=== PATIENT | female | born 1980 | race Caucasian/White ===

== ENCOUNTER 2017-11-11 12:26 | Outpatient (CLI) | payer BC ==
--- NOTE | 2017-11-11 13:05 | ULT ---
ULTRASOUND SOFT TISSUE: Date: 11/11/17 HISTORY: Right upper medial arm pain. FINDINGS/IMPRESSION: Sonographic evaluation of the right upper medial arm demonstrates no evidence of mass, fluid collecti on, or hematoma. POS: [facility]
== END 2017-11-11 12:27 | disposition home or self-care (01) ==
LOC: ULT 12:26
PROVIDERS: ATTEND Family Medicine
DX: M79.89 Other specified soft tissue disorders (principal); Z00.00 Encounter for general adult medical examination without abnormal findings
CPT/HCPCS: 76999; 80053; 80061; 85025

== ENCOUNTER 2018-02-10 15:22 | Outpatient (CLI) | payer BC ==
--- NOTE | 2018-02-10 16:24 | RAD ---
CERVICAL SPINE COMPLETE WITH FLEXION AND EXTENSION 02/10/18 HISTORY: Chronic neck pain. COMPARISON: None. FINDINGS: There is abnormal narrowing of the C5-6 and C6-7 disc space with end plate sclerosis and uncinate pro cess hypertrophy. There is 2 mm C6 over C7 retrolisthesis. This retrolisthesis improves with flexion and is unchanged with extension. IMPRESSION: Moderate spondylosis lower cervical spine with subtle translation with flexion. POS: [facility]
== END 2018-02-10 15:23 | disposition home or self-care (01) ==
LOC: SCSRAD 15:22
PROVIDERS: ATTEND Family Medicine
DX: M54.2 Cervicalgia (principal); M47.812 Spondylosis without myelopathy or radiculopathy, cervical region
CPT/HCPCS: 72052

== ENCOUNTER 2018-02-27 10:30 | Outpatient (CLI) | payer BC ==
--- NOTE | 2018-02-27 13:30 | ULT ---
ULTRASOUND ABDOMEN: Date: 02/27/18 HISTORY: Right lower quadrant pain. FINDINGS: The liver, spleen, gallbladder, pancreas, kidneys, and visualized portions of the aorta and IVC are n ormal. The common duct measures 2.0 mm in diameter. No free fluid is seen. IMPRESSION: Normal exam. POS: [facility]
--- NOTE | 2018-02-27 13:31 | ULT ---
PELVIC ULTRASOUND WITH DOPPLER: (Transabdominal, transvaginal, Pitts scale, color flow, and spectral Doppler) Date: 02/27/18 HISTORY: Right lower quadrant pain. FINDINGS: The uterus measures 5.5 x 3.8 x 3.3 cm, without focal mass or endometrial fluid. The endometrium moiz ures 2.0 mm in thickness. The right ovary measures 2.9 x 2.6 x 2.1 cm. The left ovary measures 2.4 x 2.3 x 1.8 cm. Flow is demo nstrated to both ovaries. No free fluid or adnexal mass is seen. IMPRESSION: Unremarkable exam. POS: [facility]
== END 2018-02-27 10:31 | disposition home or self-care (01) ==
LOC: BICULT 10:30
PROVIDERS: ATTEND Family Medicine
DX: R10.813 Right lower quadrant abdominal tenderness (principal)
CPT/HCPCS: 76700; 76856

== ENCOUNTER 2018-03-03 12:59 | Outpatient (CLI) | payer BC ==
[~2018-03-03 12:59] MED LIST: Iopamidol 370 76% 100 ML VIAL ONE
[2018-03-03 14:11] LABS: BHCG - Serum Negative (NEGATIVE); Pregs Control Background? CLEAR/WHITE (CLR/WHITE); Pregs Control Bar Appear? YES (CONTROL BAR)
--- NOTE | 2018-03-03 15:27 | MRI ---
MRI CERVICAL SPINE: Multiplanar, multisequential imaging of cervical spine obtained. INDICATION: Neck pain. Right arm pain. FINDINGS: Cervical vertebrae maintain height and alignment. There is edema within the C5 and C6 vertebrae. Th ere is mild superior end plate depression of the C6 vertebra resulting mild loss of central height. Degenerative disk signal changes are also present at C5-6. No disk bulge or protrusion at C2-3 or C3-4. At C4-5, minimal disk bulge. No central canal or foraminal stenosis. At C5-6, mild disk bulge mildly effaces the anterior subarachnoid space. There is bilateral uncinate hypertrophy at this level producing mild bilateral foraminal narrowing. At C6-7, a mild diffuse disk bulge abuts the anterior cord. Asymmetric disk-osteophyte complex proje cts to the right and encroaches into the right foramina. Left foramina appears patent. At C7-T1, no significant abnormality. Cord signal is normal. IMPRESSION: There is edema within the C5 an C6 vertebrae with mild superior end plate depression at C6. There ar e degenerative disk end plate changes at C5-6 and mild disk bulge at C5-6. A more prominent bulge at C6-7 with asymmetric disk to the right at this level as described above. POS: [facility]
--- NOTE | 2018-03-03 15:51 | CT ---
CT ABDOMEN WITH CONTRAST CT PELVIS WITH CONTRAST: DATE: 03/03/18 HISTORY: 37-year-old female with right lower quadrant abdominal pain for 2 months, R10.813. COMPARISON: None. TECHNIQUE: IV injection of iodinated contrast media: [id number]. Oral contrast media: Administered. FINDINGS: Levoscoliosis of the lumbar spine. No high grade lumbar central spinal canal stenosis. Lung bases are clear. No pleural effusion. No pneumoperitoneum. Inferior position of urinary bladder. Uterus intact at midline, normal size. Only the most proximal 0.5 cm of the appendix is visualized. It contains ga s in its lumen and is of normal thickness. The rest of the appendix is not identified with certainty, due to lack of visceral fat. Posterior to that, there is a several centimeter region of intermediate attenuation in the lateral aspect of the right pelvic cavity, posterior to the right proximal building construction inspector al iliac vein. It is uncertain whether this represents pathology involving the right ovary, fallopian tube, or neither. There was no ovarian abnormality or ovarian cyst identified on the pelvic ultrasou nd of 02/27/18, and therefore the exact etiology is uncertain (axial image 63 of 85, series 2; galan l image 58 of 110, series 602). No colonic diverticulitis. No small bowel dilation. Normal abdominal aorta, kidneys, adrenals, pancreas, liver, and spleen. No pneumoperitoneum or ascites. IMPRESSION: 1)In the right pelvic cavity, there is an area of intermediate density, of uncertain etiology and sig nificance. It is uncertain whether this is the cause of the patient's symptoms. 2)Pelvic relaxation. 3)Levoscoliosis of the lumbar spine. [facility] POS: [facility]
== END 2018-03-03 13:00 | disposition home or self-care (01) ==
LOC: SCSMRI 12:59
PROVIDERS: ATTEND Family Medicine
DX: M50.122 Cervical disc disorder at C5-C6 level with radiculopathy (principal); N91.2 Amenorrhea, unspecified; R10.813 Right lower quadrant abdominal tenderness; M41.9 Scoliosis, unspecified; N81.89 Other female genital prolapse
CPT/HCPCS: 36415; 72141; 74177; 84703

== ENCOUNTER 2018-03-03 21:09 | Emergency (ER) | payer BC ==
[2018-03-03 22:18] LABS: Bilirubin Negative (Negative); Blood, Urine Negative (Negative); Clarity Clear (Clear); Glucose, Urine (Dipstick) Negative (Negative); Leukocyte Negative (Negative); Nitrite Negative (Negative); Protein, Urine (Dipstick) Negative (Neg-Trace); Urobilinogen 0.2 mg/dL (0.2-1.0)
[2018-03-03 22:25] LABS: Specific Gravity, Urine 1.003 (1.002-1.036)
[2018-03-03 22:26] LABS: Hemoglobin 13.5 g/dL (12.0-16.0); Mean Corpuscular Hemoglobin 30.3 pg (27.0-31.0); Mean Corpuscular Volume 89.1 fL (78.0-98.0); Mean Platelet Volume 9.3 fL (7.4-10.4); Platelet Count 169 thou/uL (130-400); Red Blood Cell (RBC) Count 4.45 mill/uL (4.20-5.40)
[2018-03-03 22:27] LABS: BHCG - Serum Negative (NEGATIVE); Pregs Control Background? CLEAR/WHITE (CLR/WHITE); Pregs Control Bar Appear? YES (CONTROL BAR)
[2018-03-03 22:36] LABS: Eosinophils 4 % (0-10); Lymphocytes 26 % (21-51); MDiff Complete? YES; Monocytes 11 % (0-10); Neutrophil 58 % (42-75)
[2018-03-03 22:37] LABS: ALT (SGPT) 13 U/L (8-55); AST (SGOT) 21 U/L (5-34); Albumin 4.5 g/dL (3.5-5.0); Alkaline Phosphatase 45 U/L (40-150); Anion Gap 14 mmol/L (10-20); BUN (Urea Nitrogen) 8 mg/dL (7.0-18.7); Bilirubin, Total 0.4 mg/dL (0.2-1.2); Calc. Creatinine Clearance 0 mL/min (70-130); Calcium 9.7 mg/dL (7.8-10.44); Carbon Dioxide 25 mmol/L (22-29); Chloride 105 mmol/L (98-107); Estimated GFR-MDRD 79; Glucose 99 mg/dL (70-105); Lipase 31 U/L (8-78); Potassium 3.8 mmol/L (3.5-5.1); Protein, Total 7.5 g/dL (6.0-8.3); Sodium 140 mmol/L (136-145)
--- NOTE | 2018-03-03 23:25 | ULT ---
PELVIC ULTRASOUND 03/03/18 COMPARISON: CT abdomen/pelvis 01/31/18, pelvic ultrasound 01/27/18. HISTORY: Right lower quadrant/pelvic pain. TECHNIQUE: Multiplanar morse scale and color doppler images were obtained in a transabdominal pelvic ultrasound. FINDINGS: The uterus is normal in size and appearance without focal abnormality. The endometrial stripe is norm al in thickness measuring 2-3 mm. No free fluid is seen in the pelvis. Both ovaries are normal in size and appearance and demonstrates normal internal flow. No adnexal mass is identified. IMPRESSION: Unremarkable pelvic ultrasound. POS: [facility]
== END 2018-03-04 00:02 | disposition home or self-care (01) ==
LOC: SCSER 21:09
DX: R10.31 Right lower quadrant pain (principal); J45.909 Unspecified asthma, uncomplicated; Z79.899 Other long term (current) drug therapy
CPT/HCPCS: 36415; 72141; 74177; 76856; 80053; 81003; 83690; 84703; 85025

== ENCOUNTER 2018-03-17 13:51 | Outpatient (CLI) | payer BC ==
--- NOTE | 2018-03-17 16:02 | CT ---
ABDOMEN CT WITH CONTRAST PELVIC CT WITH CONTRAST 03/17/18 HISTORY: Right lower quadrant pain x5 weeks. COMPARISON: None. FINDINGS: The computer sciences professor tomogram demonstrates persistent levoscoliosis of the lumbar spine, incompletely evaluated. ABDOMEN CT: Lung bases are clear. Appropriate enhancement of the solid organs. Patent portal vein. Unremarkable g allbladder. Symmetric enhancement of the kidneys. No obstructive uropathy. Gastric mucosa, duodenum and multiple normal caliber small bowel loops are identified. Fecalization of the distal ileum likely due to incompetent ileocecal valve. Scattered material and contrast in a nondistended, nondilated colon. Imaging from the region of the cecal apex is a normal caliber ap pendix. The appendix appears to be filled with air and a partial amount of contrast. No obvious infla mmatory change. Evaluation for inflammatory change is limited due to decreased intra-abdominal fat. N o definite mass, lymphadenopathy, free air or free fluid. Previously noted hypodensity in the right hemipelvis/right adnexa is not appreciated on the current e xam. CT PELVIS: Unremarkable urinary bladder. Uterus and adnexal structures are unremarkable. Stable scoliotic curvature of the lumbar spine. IMPRESSION: 1. Normal caliber appendix. 2. Indeterminate density noted in the right hemipelvis on the previous examination is not curren tly appreciated. POS: [facility]
== END 2018-03-17 13:52 | disposition home or self-care (01) ==
LOC: CT 13:51
PROVIDERS: ATTEND Surgery
DX: R10.813 Right lower quadrant abdominal tenderness (principal)
CPT/HCPCS: 74177

== ENCOUNTER 2018-04-21 11:51 | Outpatient (CLI) | payer BC ==
--- NOTE | 2018-04-21 14:59 | ULT ---
LIMITED LEFT BREAST ULTRASOUND: Date: 04/21/18 PROVIDED CLINICAL HISTORY: Abnormal mammogram. FINDINGS: Limited sonographic interrogation was performed of the left breast in the region of mammographic conc [place]. No cystic or solid masses are seen in the area of concern. IMPRESSION: BI-RADS Category 1 - Negative. Return to annual screening mammography recommended. POS: [facility]
== END 2018-04-21 11:52 | disposition home or self-care (01) ==
LOC: BICMAMMO 11:51
PROVIDERS: ATTEND Student in an Organized Health Care Education/Training Program
DX: Z12.31 Encounter for screening mammogram for malignant neoplasm of breast (principal); N64.89 Other specified disorders of breast; Z80.3 Family history of malignant neoplasm of breast
CPT/HCPCS: 77063; 77067; G0279

== ENCOUNTER 2018-04-21 15:04 | Outpatient (CLI) | payer BC ==
[~2018-04-21 15:04] MED LIST changes: +Gadobenate Dimeglumine 529 MG/1 ML (20ML VIAL) ONE; -Iopamidol 370 76% 100 ML VIAL ONE
--- NOTE | 2018-04-21 18:52 | MRI ---
MRI PELVIS WITH AND WITHOUT IV CONTRAST: 04/21/18 PROVIDED CLINICAL HISTORY: Right lower quadrant pain. FINDINGS: Correlation is mad with CT examinations dated 03/17/18 and 03/03/18. The uterus demonstrates a normal MR appearance. There is a normal appearance to the uterine myometriu m and endometrium. The right and left ovaries demonstrate an unremarkable MR appearance. Simple appearing 2.1 cm dominan t physiologic cyst left ovary. There is no evidence for inflammatory fat stranding or free fluid. The pelvic vasculature demonstrate s a normal MR appearance. Regional marrow and muscular signal appear normal. The urinary bladder demo nstrates no evidence for filling defect. IMPRESSION: Unremarkable MRI of the pelvis. POS: [facility]
--- NOTE | 2018-04-21 19:12 | MRI ---
MRI ABDOMEN WITH AND WITHOUT IV CONTRAST 04/21/18 PROVIDED CLINICAL HISTORY: Abdominal pain. FINDINGS: There is a subcentimeter circumscribed T2 hyperintense focus involving the anterior segment of the ri ght hepatic lobe demonstrating transient contrast enhancement on the initial postcontrast images, com patible with a small flash filling hemangioma. The liver, spleen, pancreas, kidneys and adrenal gland s demonstrate an otherwise unremarkable MR appearance. There is no evidence for intrahepatic or extra hepatic biliary ductal dilatation. No evidence for cholelithiasis. There is no inflammatory fat stran ding evident. Regional marrow and muscular signal appear normal. IMPRESSION: Unremarkable MRI of the abdomen. POS: [facility]
== END 2018-04-21 15:05 | disposition home or self-care (01) ==
LOC: MRI 15:04
PROVIDERS: ATTEND Surgery
DX: L02.91 Cutaneous abscess, unspecified (principal); R22.9 Localized swelling, mass and lump, unspecified
CPT/HCPCS: 36415; 72197; 74183; 80053; 85025; 86140; A9579

== ENCOUNTER 2019-05-15 12:55 | Outpatient (CLI) | payer BC ==
--- NOTE | 2019-05-15 14:44 | MMO ---
Bilateral MAMMO Bilat Screen [facility]. CLINICAL HISTORY: Patient is 39 years old and is seen for screening. The patient has the following family history of breast cancer: paternal grandmother, at age 28 and paternal aunt, at age 50. The patient has no personal history of cancer. VIEWS: The views performed were: bilateral craniocaudal with tomosynthesis and bilateral mediolateral oblique with tomosynthesis. FILMS COMPARED: The present examination has been compared to prior imaging studies performed at [facility] on 02/18/2017 and 04/21/2018. This study has been interpreted with the assistance of computer-aided detection. MAMMOGRAM FINDINGS: The breasts are heterogeneously dense, which could obscure a lesion on mammography. There are no suspicious masses, suspicious calcifications, or new areas of architectural distortion. IMPRESSION: THERE IS NO MAMMOGRAPHIC EVIDENCE OF MALIGNANCY. A ROUTINE FOLLOW-UP MAMMOGRAM IN 1 YEAR IS RECOMMENDED. THE RESULTS OF THIS EXAM WERE SENT TO THE PATIENT. ACR BI-RADS Category 1 - Negative MAMMOGRAPHY NOTE: 1. A negative mammogram report should not delay a biopsy if a dominant of clinically suspicious mass is present. 2. Approximately 10% to 15% of breast cancers are not detected by mammography. 3. Adenosis and dense breasts may obscure an underlying neoplasm. Reported by: KIERA ROSADO MD Electonically Signed: [id number]
== END 2019-05-15 12:56 | disposition home or self-care (01) ==
LOC: BICMAMMO 12:55
PROVIDERS: ATTEND Student in an Organized Health Care Education/Training Program
DX: Z12.31 Encounter for screening mammogram for malignant neoplasm of breast (principal); Z80.3 Family history of malignant neoplasm of breast
CPT/HCPCS: 77063; 77067

== ENCOUNTER 2019-10-16 06:36 | Outpatient (CLI) | payer BC ==
--- NOTE | 2019-10-16 07:54 | ULT ---
Exam: Transabdominal pelvic ultrasound HISTORY: Right lower quadrant pain COMPARISON: None TECHNIQUE: Transabdominal imaging of the pelvis is performed Ovaries are interrogated with grayscale, color flow, Doppler imaging and spectral waveform analysis FINDINGS: Uterus is identified, without myometrial masses. Uterus measures 8.0 x 3.3 x 5.4 cm Endometrium: Homogeneous echotexture, measuring 0.8 cm Left ovary: Normal echotexture, measuring 3.7 x 3.6 x 1.9 cm Right ovary: Normal echotexture, measuring 2.7 x 4.0 x 3.7 cm. 2.7 x 1.7 x 1.9 cm right ovarian cyst Free fluid: None Ovarian Doppler: Vascular flow to both ovaries IMPRESSION: 1. Right ovarian cyst. Follow-up ultrasound in 8 weeks.
== END 2019-10-16 06:37 | disposition home or self-care (01) ==
LOC: BICULT 06:36
PROVIDERS: ATTEND Family Medicine
DX: R10.813 Right lower quadrant abdominal tenderness (principal); N83.201 Unspecified ovarian cyst, right side; Z90.49 Acquired absence of other specified parts of digestive tract
CPT/HCPCS: 76856; 93976

== ENCOUNTER 2020-05-16 14:36 | Outpatient (CLI) | payer BC | END 2020-05-16 14:37 | disposition home or self-care (01) | LOC: BICMAMMO 14:36 | PROVIDERS: ATTEND Student in an Organized Health Care Education/Training Program | DX: Z12.31 Encounter for screening mammogram for malignant neoplasm of breast (principal); Z80.3 Family history of malignant neoplasm of breast | CPT/HCPCS: 77063; 77067 ==

== ENCOUNTER 2021-05-29 13:50 | Outpatient (CLI) | payer BC | END 2021-05-29 13:51 | disposition home or self-care (01) | LOC: BICMAMMO 13:50 | PROVIDERS: ATTEND Student in an Organized Health Care Education/Training Program | DX: Z12.31 Encounter for screening mammogram for malignant neoplasm of breast (principal); Z80.3 Family history of malignant neoplasm of breast | CPT/HCPCS: 77063; 77067 ==

== ENCOUNTER 2022-06-04 07:54 | Outpatient (CLI) | payer BC | END 2022-06-04 07:55 | disposition home or self-care (01) | LOC: BICMAMMO 07:54 | PROVIDERS: ATTEND Student in an Organized Health Care Education/Training Program | DX: Z12.31 Encounter for screening mammogram for malignant neoplasm of breast (principal); Z80.3 Family history of malignant neoplasm of breast | CPT/HCPCS: 77063; 77067 ==

== ENCOUNTER 2023-06-06 08:09 | Outpatient (CLI) | payer BC | END 2023-06-06 08:10 | disposition home or self-care (01) | LOC: BICMAMMO 08:09 | PROVIDERS: ATTEND Student in an Organized Health Care Education/Training Program | DX: Z12.31 Encounter for screening mammogram for malignant neoplasm of breast (principal); Z80.3 Family history of malignant neoplasm of breast | CPT/HCPCS: 77063; 77067 ==

== ENCOUNTER 2023-09-27 21:34 | Day surgery (SDC) | payer BC ==
[2023-09-27] MEDS ORDERED: Glucagon 1 MG/ML KIT ONE (22:04)
[2023-09-27] MEDS ORDERED: SUCCINYLCHOLINE/SOD CL,ISO/PF 200 MG/10 ML SYRINGE FS ONE (22:35)
[2023-09-27] MEDS ORDERED: Lidocaine 2% PF 5 ML VIAL ONE (22:35)
[2023-09-27] MEDS ORDERED: PROPOFOL 20 ML ONE (22:35)
[2023-09-27] MEDS ORDERED: fentaNYL PF 100 MCG/2 ML SYRINGE ONE (22:35)
[2023-09-27] MEDS ORDERED: Dexamethasone 20 MG/5 ML VIAL ONE (22:45)
[2023-09-27] MEDS ORDERED: Ondansetron PF 4 MG/2 ML Vial ONE (22:45)
== END 2023-09-27 23:58 | disposition home or self-care (01) ==
LOC: ERS 21:34 → SDC/OP 22:38
PROVIDERS: ATTEND Internal Medicine Gastroenterology
PROC: 0DB68ZX Excision of Stomach, Via Natural or Artificial Opening Endoscopic, Diagnostic (ICD-10-PCS; principal; 2023-09-27)
PROC: 0DC58ZZ Extirpation of Matter from Esophagus, Via Natural or Artificial Opening Endoscopic (ICD-10-PCS; principal; 2023-09-27)
DX: T18.128A Food in esophagus causing other injury, initial encounter (principal); K22.2 Esophageal obstruction; K20.90 Esophagitis, unspecified without bleeding; J45.909 Unspecified asthma, uncomplicated; Z90.49 Acquired absence of other specified parts of digestive tract; Z98.890 Other specified postprocedural states; Z79.899 Other long term (current) drug therapy
CPT/HCPCS: 88305; 96374; J1100; J1611; J2001; J2405; J2704